=== PATIENT | male | born 1995 | race Caucasian/White ===

== ENCOUNTER 2019-10-01 12:58 | Emergency (ER) | payer BC, MEDICAID ==
[2019-10-01 13:16] VITALS: BP 134/87; PULSE 115; O2SAT 98
--- NOTE | 2019-10-01 13:27 | ERPHSYRPT ---
- History of Present Illness Time Seen by Provider: 10/01/19 13:26 Source: patient Exam Limitations: no limitations Patient Subjective Stated Complaint: pt here for tearing, swelling and pain to left eye, started a couple days ago, no foreign body. Triage Nursing Assessment: pt laert, walked in, resp easy, skin w/d/p, has swelling, redness and tearing to left eye Physician History: Left eye - Red, tearing. No pain, No Blurred vision Timing/Duration: day(s) (3) Location: left eye Severity: moderate Apparent Injury: no Associated Symptoms: itching, redness Visual Assistive Devices: None Chemical Exposure: No Trauma: No Welding Arc/Tanning Bed Exposure: No Allergies/Adverse Reactions: No Known Drug Allergies Allergy (Verified 10/01/19 13:17) Hx Tetanus, Diphtheria Vaccination/Date Given: No Hx Influenza Vaccination/Date Given: No Hx Pneumococcal Vaccination/Date Given: No Immunizations Up to Date: Yes - Review of Systems Constitutional: No Fever, No Chills Eyes: Eye Redness, Itchy, Tearing, No Vision Changes, No Foreign Body Sensation Ears, Nose, & Throat: No Symptoms Respiratory: No Cough, No Dyspnea Cardiac: No Chest Pain, No Edema, No Syncope Abdominal/Gastrointestinal: No Abdominal Pain, No Nausea, No Vomiting, No Diarrhea Genitourinary Symptoms: No Dysuria Musculoskeletal: No Back Pain, No Neck Pain Skin: No Rash Neurological: No Dizziness, No Focal Weakness, No Sensory Changes Psychological: No Symptoms Endocrine: No Symptoms All Other Systems: Reviewed and Negative - Past Medical History Pertinent Past Medical History: No - Past Surgical History Past Surgical History: Yes Gastrointestinal: Cholecystectomy - Social History Smoking Status: Current every day smoker Exposure to second hand smoke: Yes Drug Use: marijuana Patient Lives Alone: No - Nursing Vital Signs Nursing Vital Signs: Initial Vital Signs Temperature 97.0 F 10/01/19 13:11 Pulse Rate 115 H 10/01/19 13:11 Respiratory Rate 14 10/01/19 13:11 Blood Pressure 134/87 10/01/19 13:11 O2 Sat by Pulse Oximetry 98 10/01/19 13:11 Pain Scale Pain Intensity 3 - Physical Exam Vision Acuity Degree Evaluation Phase: Uncorrected Vision Acuity Right Eye: 20/50 Vision Acuity Left Eye: 20/50 Eye Exam: left eye: conjunctival inflammation, erythema, bilateral eye: PERRL, EOMI Ears, Nose, Throat Exam: normal ENT inspection, TMs normal, pharynx normal Neck Exam: normal inspection, non-tender, supple Respiratory Exam: normal breath sounds, No chest tenderness Cardiovascular Exam: regular rate/rhythm, normal heart sounds Gastrointestinal Exam: soft, normal bowel sounds Extremity Exam: normal inspection, normal range of motion Neurologic: alert, oriented x 3, cooperative Skin Exam: normal color, warm, dry Lymphatic: No adenopathy SpO2 Interpretation: normal SpO2: 98 O2 Delivery: Room Air - Course Nursing assessment & vital signs reviewed: Yes - Progress Progress: unchanged Progress Note: 10/01/19 13:32 Will treat with ABx eye drops. Adv pt to see Ophth SEMAJ Counseled pt/family regarding: diagnosis, need for follow-up (See Ophth) - Departure Departure Disposition: Home Clinical Impression: Conjunctivitis Qualifiers: Conjunctivitis type: acute Acute conjunctivitis type: bacterial Laterality: left Qualified Code(s): H10.32 - Unspecified acute conjunctivitis, left eye Condition: Good Critical Care Time: No Referrals: ZANDER DICKERSON MD [Primary Care Provider] - Instructions: Conjunctivitis ([place]) (DC) Prescriptions: Ofloxacin Ophth 5 ml [Ocuflox OPHTHALMIC 5 ML] 2 drops OP QID #1 bottle
== END 2019-10-01 13:58 | disposition home or self-care (01) ==
LOC: ED 12:58
DX: H10.32 Unspecified acute conjunctivitis, left eye (principal)
CPT/HCPCS: 99283